=== PATIENT | female | born 1935 | race Caucasian/White ===

== ENCOUNTER 2020-03-15 19:15 | Emergency (ER) | payer MEDICARE ==
[~2020-03-15] VITALS: Ht 157.5 cm; Wt 62.7 kg
[2020-03-15 19:22] VITALS: BP 137/41
--- NOTE | 2020-03-15 20:12 | NUR ---
Patient presents to ER c/o cough and body aches x3 days. Patient states she has also been feeling dizzy. Patient felt lightheaded yesterday and assisted herself to the ground. Denies trauma. Patient states her is sick. Patient is in NAD. Respirations even and unlabored. SPO2>95% RA.
[2020-03-15] MEDS ORDERED: KETOROLAC 60 MG/2 ML ONE (20:35)
[2020-03-15] MEDS ORDERED: HYDROmorphone 1 MG/ML, 1ML INJ ONE (20:35)
--- NOTE | 2020-03-15 20:35 | NUR ---
RN at bedside-updated pt on plan. 02 sats 95% RA. Pt denies needs at this time.
--- NOTE | 2020-03-15 21:04 | NUR ---
Pt agrees with and understands discharge plan and instructions.
== END 2020-03-15 21:20 | disposition home or self-care (01) ==
LOC: ED 21:00
DX: M79.10 Myalgia, unspecified site (principal); R05 Cough; Z20.822 Contact with and (suspected) exposure to COVID-19; R09.81 Nasal congestion; R07.9 Chest pain, unspecified
CPT/HCPCS: 71045; 87635; 99284